=== PATIENT | male | born 1925 | race Caucasian/White ===

== ENCOUNTER 2016-03-29 08:16 | Day surgery (SDC) | payer MEDICARE, OTHER ==
[~2016-03-29] VITALS: Ht 144.8 cm; Wt 48.2 kg
[~2016-03-29 08:16] MED LIST: AMLO-511 PO; ASPI81 PO; BESIFLOXACIN HCL 0.6% 5 ML OPHTHALMIC SUSPENSION OD ONE; CALC260T6 PO; DICLOFENAC SODIUM 0.1% 2.5 ML OPHTHALMIC SOLUTION OD ONE; DSS100 PO; FERR-89 PO; HYDR-3965 PO; LATA2.5D2 OU; LORA10TA7 PO; PHEN32.43 PO; PHENL PO; PHENY100 PO; PHENYLEPHRINE HCL 2.5% 2 ML OPHTHALMIC SOLUTION OD SCH; RINGERS SOLUTION,LACTATED 500 ML IV ONE; RISP.5 PO; SENN-30 PO; SIMV-259 PO; TROPICAMIDE 1% 2 ML OPHTHALMIC SOLUTION OD SCH; VITAD1000 PO
[2016-03-29] MEDS ORDERED: PHENYLEPHRINE HCL 2.5% 2 ML OPHTHALMIC SOLUTION ONE (14:22)
[2016-03-29] MEDS ORDERED: TROPICAMIDE 1% 2 ML OPHTHALMIC SOLUTION ONE (14:22)
[2016-03-29] MEDS ORDERED: BESIFLOXACIN HCL 0.6% 5 ML OPHTHALMIC SUSPENSION ONE (14:22)
[2016-03-29] MEDS ORDERED: RINGERS SOLUTION,LACTATED 500 ML IV ONE (14:22)
[2016-03-29] MEDS ORDERED: DICLOFENAC SODIUM 0.1% 2.5 ML OPHTHALMIC SOLUTION ONE (14:22)
[2016-04-25] MEDS ORDERED: DONE10TA PO (17:04)
[2016-04-25] MEDS ORDERED: DOCUSATE-SENNA PO (17:04)
[2016-04-25] MEDS ORDERED: ACET-2247 PO (17:04)
[2016-04-25] MEDS ORDERED: PREDAOS OS (17:07)
[2016-04-25] MEDS ORDERED: [UNRECOGNIZED DRUG - OTHER] TP (17:07)
== END 2016-03-29 09:50 | disposition home or self-care (01) ==
LOC: SURGERY 08:16
PROVIDERS: ATTEND Specialist
DX: H25.011 Cortical age-related cataract, right eye (principal); H35.3221 Exudative age-related macular degeneration, left eye, with active choroidal neovascularization; I10 Essential (primary) hypertension; E78.00 Pure hypercholesterolemia, unspecified; F32.9 Major depressive disorder, single episode, unspecified; F34.9 Persistent mood [affective] disorder, unspecified; Z86.73 Personal history of transient ischemic attack (TIA), and cerebral infarction without residual deficits; Z98.890 Other specified postprocedural states; Z53.8 Procedure and treatment not carried out for other reasons
CPT/HCPCS: J7120

== ENCOUNTER 2016-04-26 06:08 | Day surgery (SDC) | payer OTHER ==
[~2016-04-26] VITALS: Ht 142.2 cm; Wt 47.3 kg
[~2016-04-26 06:08] MED LIST changes: +ACET-2247 PO; -BESIFLOXACIN HCL 0.6% 5 ML OPHTHALMIC SUSPENSION OD ONE; -DICLOFENAC SODIUM 0.1% 2.5 ML OPHTHALMIC SOLUTION OD ONE; +DOCUSATE-SENNA PO; +DONE10TA PO; -DSS100 PO; -HYDR-3965 PO; -PHEN32.43 PO; -PHENY100 PO; -PHENYLEPHRINE HCL 2.5% 2 ML OPHTHALMIC SOLUTION OD SCH; +PREDAOS OS; -RINGERS SOLUTION,LACTATED 500 ML IV ONE; -SENN-30 PO; -TROPICAMIDE 1% 2 ML OPHTHALMIC SOLUTION OD SCH; +[UNRECOGNIZED DRUG - OTHER] TP
[2016-04-26] MEDS ORDERED: TROPICAMIDE 1% 2 ML OPHTHALMIC SOLUTION ONE (06:18)
[2016-04-26] MEDS ORDERED: BESIFLOXACIN HCL 0.6% 5 ML OPHTHALMIC SUSPENSION ONE (06:18)
[2016-04-26] MEDS ORDERED: DICLOFENAC SODIUM 0.1% 2.5 ML OPHTHALMIC SOLUTION ONE (06:18)
[2016-04-26] MEDS ORDERED: RINGERS SOLUTION,LACTATED 500 ML IV ONE ×2 (06:19→07:00)
[2016-04-26] MEDS ORDERED: PHENYLEPHRINE HCL 2.5% 2 ML OPHTHALMIC SOLUTION ONE (06:19)
[2016-04-26] MEDS ORDERED: DICLOFENAC SODIUM 0.1% 2.5 ML OPHTHALMIC SOLUTION OD ONE (07:00)
[2016-04-26] MEDS ORDERED: BESIFLOXACIN HCL 0.6% 5 ML OPHTHALMIC SUSPENSION OD ONE (07:00)
[2016-04-26] MEDS: TROPICAMIDE 1% 2 ML OPHTHALMIC SOLUTION OD SCH ×2 (07:04→07:10)
[2016-04-26] MEDS: PHENYLEPHRINE HCL 2.5% 2 ML OPHTHALMIC SOLUTION OD SCH ×2 (07:04→07:10)
[2016-04-26] MEDS ORDERED: LIDOCAINE HCL/PF 1% 2 ML VIAL INJ ONE (12:00)
[2016-04-26] MEDS ORDERED: POVIDONE-IODINE 10% 15 ML SOLUTION UD TP ONE (12:00)
[2016-04-26] MEDS ORDERED: HYALURONATE SOD/CHONDROITIN SOD 0.5 ML VIAL IO ONE (12:00)
[2016-04-26] MEDS ORDERED: DEXAMETHASONE SOD PHOS 4 MG/ML VIAL IVP ONE (12:00)
[2016-04-26] MEDS ORDERED: FentaNYL CITRATE-PF 100 MCG/2 ML VIAL IVP ONE (12:00)
[2016-04-26] MEDS ORDERED: MIDAZOLAM HCL 2 MG/2 ML VIAL IVP ONE (12:00)
[2016-04-26] MEDS ORDERED: TETRACAINE HCL VISCOUS 0.5% 0.6 ML OPHTHALMIC SOLUTION OD ONE (12:00)
[2016-04-26] MEDS ORDERED: HYALURONATE SODIUM 12 MG/ML 0.8 ML SYRINGE IO ONE (12:00)
== END 2016-04-26 09:50 | disposition home or self-care (01) ==
LOC: SURGERY 06:08
PROVIDERS: ATTEND Specialist
DX: H25.011 Cortical age-related cataract, right eye (principal); I10 Essential (primary) hypertension; I70.0 Atherosclerosis of aorta; E78.00 Pure hypercholesterolemia, unspecified; H40.9 Unspecified glaucoma; I73.9 Peripheral vascular disease, unspecified; F03.90 Unspecified dementia, unspecified severity, without behavioral disturbance, psychotic disturbance, mood disturbance, and anxiety; F22 Delusional disorders; Z86.73 Personal history of transient ischemic attack (TIA), and cerebral infarction without residual deficits
CPT/HCPCS: 66982; 93005; C1780; J7120; J1100; J2250; J3010; J3490